=== PATIENT | female | born 1985 | race Caucasian/White ===

== ENCOUNTER 2017-08-15 10:22 | Emergency (ER) | payer OTHER ==
[2017-08-15] MEDS: ONDANSETRON (ODT) 4 MG TAB ODT (11:52)
[2017-08-15] MEDS: HYDROCODONE/APAP (5/325) TAB PO (11:52)
== END 2017-08-15 14:17 | disposition home or self-care (01) ==
LOC: FTE 10:22
DX: S39.92XA Unspecified injury of lower back, initial encounter (principal); X58.XXXA Exposure to other specified factors, initial encounter; Y92.89 Other specified places as the place of occurrence of the external cause
CPT/HCPCS: 72131; 99284-25